=== PATIENT | male | born 1945 | race Caucasian/White ===

== ENCOUNTER 2019-03-05 16:37 | Inpatient (IN) | payer MEDICARE ==
[~2019-03-05] VITALS: Ht 175.3 cm; Wt 68.9 kg
[2019-03-05] MEDS ORDERED: DILTIAZEM HCL 5 MG/ML 5 ML VIAL IV STA ×2 (16:50→16:54)
[2019-03-05] MEDS ORDERED: SODIUM CHLORIDE 0.9% 1000ML 1,000 ML IV STA (16:54)
[2019-03-05] MEDS ORDERED: SODIUM CHLORIDE 0.9% 1000ML 1,000 ML ONE (16:54)
[2019-03-05] MEDS ORDERED: DILTIAZEM HCL VIAL 5 ML ONE ×2 (16:55→16:56)
[2019-03-05] MEDS ORDERED: NITROGLYCERIN 2% OINT 1 GM PKT TOP ONE ×2 (17:00)
[2019-03-05] MEDS ORDERED: SODIUM CHLORIDE 0.9% 1000ML 1,000 ML IV ONE (17:00)
[2019-03-05 17:27] LABS: BASOPHILS % 0.4 % (0.0-1.0); EOSINOPHILS # (AUTO) 0.2 (0.0-0.4); EOSINOPHILS % 2.1 % (0.0-6.0); HEMATOCRIT 45.5 % (38.2-49.6); HEMOGLOBIN 15.2 g/dL (14.0-18.0); LYMPHOCYTES # (AUTO) 1.7 (1.0-3.2); LYMPHOCYTES % 15.1 % (18.0-39.1); MEAN CORPUSCULAR HEMOGLOBIN 29.6 pg (28-32); MEAN CORPUSCULAR HGB CONC 33.4 g/dL (31-35); MEAN CORPUSCULAR VOLUME 88.5 fL (81-99); MONOCYTES # (AUTO) 0.9 (0.2-0.8); MONOCYTES % 7.8 % (4.4-11.3); NEUTROPHILS # (AUTO) 8.3 (2.1-6.9); NEUTROPHILS % 74.2 % (38.7-80.0); PLATELET COUNT 226 x10e3/uL (140-360); RED BLOOD COUNT 5.14 x10e6/uL (4.3-5.7); RED CELL DISTRIBUTION WIDTH 14.1 % (11.7-14.4)
[2019-03-05 17:40] LABS: INR 0.92; PARTIAL THROMBOPLASTIN TIME 32.7 seconds (23.8-35.5); PROTHROMBIN TIME 12.9 seconds (11.9-14.5)
[2019-03-05 17:48] LABS: ALANINE AMINOTRANSFERASE 34 IU/L (0-55); ALBUMIN 4.1 g/dL (3.5-5.0); ALBUMIN/GLOBULIN RATIO 1.6 (0.8-2.0); ALKALINE PHOSPHATASE 94 IU/L (40-150); ANION GAP 15.2 mmol/L (8-16); BLOOD UREA NITROGEN 18 mg/dL (7-26); BUN/CREATININE RATIO 16 (6-25); CALCIUM 9.9 mg/dL (8.4-10.2); CARBON DIOXIDE 25 mmol/L (22-29); CHLORIDE 103 mmol/L (98-107); CREATINE KINASE 69 IU/L (30-200); CREATININE, SERUM 1.14 mg/dL (0.72-1.25); EST GLOMERULAR FILTRATION RATE > 60 ML/MIN (60-); GLUCOSE 119 mg/dL (74-118); POTASSIUM 4.2 mmol/L (3.5-5.1); SODIUM 139 mmol/L (136-145)
[2019-03-05 17:48] LABS: ABG HCO3 26 mmol/L (23-28); ABG PCO2 40 mmHg (41-51); ABG PH 7.41 (7.31-7.41); ABG PO2 119 mmHg (80-105)
--- NOTE | 2019-03-05 17:55 | Diagnostic Imaging Report ---
Examination: Single AP view of the chest. COMPARISON: None. INDICATION: Shortness of breath DISCUSSION: Lines/tubes: None. Lungs: Pulmonary venous congestion and mild edema. Pleura: Possible small effusions. Heart and mediastinum: The heart and the mediastinum are unremarkable. Bones and soft tissues: No acute bony abnormalities. IMPRESSION: Pulmonary venous congestion and mild edema with possible small effusions. Signed by: Dr. Kartik Caceres M.D. on 03/05/2019 5:51 PM
[2019-03-05 18:04] LABS: B-TYPE NATRIURETIC PEPTIDE2 621.3 pg/mL (0-100)
[2019-03-05 18:08] LABS: THYROID STIMULATING HORMONE 1.573 uIU/mL (0.350-4.940)
[2019-03-05] MEDS ORDERED: DILTIAZEM HCL 60 MG TAB PO NR (18:45)
[2019-03-05] MEDS ORDERED: FUROSEMIDE INJ 10 MG/ML 4 ML VIAL IV NR (18:45)
[2019-03-05 18:48] LABS: BILIRUBIN,URINE NEGATIVE (NEGATIVE); CLARITY,URINE CLEAR (CLEAR); COLOR,URINE YELLOW (YELLOW); KETONES,URINE NEGATIVE (NEGATIVE); LEUKOCYTE ESTERASE ,URINE NEGATIVE (NEGATIVE); NITRITE,URINE NEGATIVE (NEGATIVE); PROTEIN,URINE DIPSTICK 1+ (NEGATIVE); URINE UROBILINOGEN 0.2 mg/dL (0.2 - 1)
[2019-03-05] MEDS ORDERED: DILTIAZEM HCL 5 MG/ML 5 ML VIAL IV NR (18:56)
[2019-03-05 18:59] LABS: BACTERIA,URINE MODERATE /HPF; EPITHELIAL CELLS,URINE FEW /LPF; MUCUS,URINE MODERATE (RARE)
[2019-03-05] MEDS ORDERED: ENOXAPARIN SODIUM INJ 100 MG/ML SYR SC SCH (19:00)
[2019-03-05] MEDS ORDERED: ONDANSETRON HCL INJ 2MG/ML 2ML 2 MG/ML VIAL IV PRN (19:00)
--- NOTE | 2019-03-05 19:07 | Diagnostic Imaging Report ---
EXAMINATION: CT scan of the chest with contrast. TECHNIQUE: Helical CT images of the chest were performed from the lung apices to the level of the adrenal glands after the intravenous administration of 100 cc of Omnipaque 300. Coronal and sagittal reformatted images were obtained.Dose modulation, iterative reconstruction, and/or weight based adjustment of the mA/kV was utilized to reduce the radiation dose to as low as reasonably achievable. COMPARISON: None. CLINICAL HISTORY:Shortness of breath DISCUSSION: LINES/TUBES: None. LUNGS AND AIRWAYS: No pulmonary blood. Centrilobular emphysema. Interlobular septal thickening most prominent within the lower lungs bilaterally. PLEURA: No pneumothorax or pleural effusions. HEART AND MEDIASTINUM: The thyroid gland is normal. Heart size is normal. Main pulmonary artery measures 2.6 cm. LYMPH NODES: There is no mediastinal, hilar or axillary lymphadenopathy. ABDOMEN: Limited contrast-enhanced views of the upper abdomen show no abnormality within the visualized liver, spleen, pancreas, or kidneys. The adrenal glands are normal. BONES AND SOFT TISSUES: No acute bony abnormalities. IMPRESSION: No pulmonary embolism. Pulmonary emphysema. Interstitial lung disease versus edema in the lower lungs. Signed by: Dr. Kartik Caceres M.D. on 03/05/2019 7:03 PM
[2019-03-05] MEDS ORDERED: MORPHINE SULFATE INJ 4 MG/ML INJ 1ML IV PRN (19:15)
--- OUTSIDE RECORDS SUMMARY | 2019-03-05 19:36 | XMS REPORT ---
[facility] Address Unknown Phone Unavailable Care Team Providers Care [employer] Supervisor Name Role Phone Froilan ROQUE Unavailable Unavailable Payers Payer Name Policy Type Policy Number Effective Date Expiration Date Problems This patient has no known problems. Allergies, Adverse Reactions, Alerts Allergy Name Allergy Type Status Severity Reaction(s) Onset Date Inactive Date Treating Clinician Comments No Known Allergies DA Active U 2019-01-24 00:00:00 No Known Allergies DA Active U 2012-06-09 00:00:00 Medications This patient has no known medications. Results Test Description Test Time Test Comments Text Results Atomic Results Result Comments CT CHEST W 2019-03-05 18:59:00 [facility] [address] [place], [place] [address] Patient Name: SHANEL MENDOZA MR #: [id number] : 1945 Age/Sex: 74/M Req #: [id number] Adm Physician: Ordered by: SANDY ROQUE MD Report #: [id number] Location: ER Room/Bed: Procedure: [id number] CT/CT CHEST W Exam Date: 03/05/19 Exam Time: 1830 REPORT STATUS: Signed EXAMINATION: CT scan of the chest with contrast. TECHNIQUE: Helical CT images of the chest were performed from the lung apices to the level of the adrenal glands after the intravenous administration of 100 cc of Omnipaque 300. Coronal and sagittal reformatted images were obtained.Dose modulation, iterative reconstruction, and/or weight based adjustment of the mA/kV was utilized to reduce the radiation dose to as low as reasonably achievable. COMPARISON: None. CLINICAL HISTORY:Shortness of breath DISCUSSION: LINES/TUBES: None. LUNGS AND AIRWAYS: No pulmonary blood. Centrilobular emphysema. Interlobular septal thickening most prominent within the lower lungs bilaterally. PLEURA: No pneumothorax or pleural effusions. HEART AND MEDIASTINUM: The thyroid gland is normal. Heart size is normal. Main pulmonary artery measures 2.6 cm. LYMPH NODES: There is no mediastinal, hilar or axillary lymphadenopathy. ABDOMEN: Limited contrast-enhanced views of the upper abdomen show no abnormality within the visualized liver, spleen, pancreas, or kidneys. The adrenal glands are normal. BONES AND SOFT TISSUES: No acute bony abnormalities. IMPRESSION: No pulmonary embolism. Pulmonary emphysema. Interstitial lung disease versus edema in the lower lungs. Signed by: Dr. Chris Montoya M.D. 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 COMPARISON: Non e. INDICATION: Shortness of breath DISCUSSION: Lines/tubes: None. Lungs: Pulmonary venous congestion and mild edema. Pleura: Possible small effusions. Heart and mediastinum: The heart and the mediastinum are unremarkable. Bones and soft tissues: No acute bony abnormalities. IMPRESSION: Pulmonary venous congestion and mild edema with possible small effusions. Signed by: Dr. Chris Montoya M.D. on 03/05/2019 5:51 PM Dictated By: CHRIS MONTOYA MD 50 Transcribed By: ROBINSON on 03/05/191750 COPY TO: JOSUE GARZA NP BASIC METABOLIC PANEL 2019-01-26 06:30:00 SODIUM (test code=NA) 140 mmol/L 136-145 POTASSIUM (test code=K) 3.9 mmol/L 3.5-5.1 CHLORIDE (test code=CL) 104.0 mmol/L 98-107 CARBON DIOXIDE (test code=CO2) 29.0 mmol/L 21-32 ANION GAP (test code=GAP) 10.9 10-20 GLUCOSE (test code=GLU) 109 mg/dL 74-106 BLOOD UREA NITROGEN (test code=BUN) 29 mg/dL 7-18 RESULT VERIFIED BY REPEAT ANALYSIS GLOMERULAR FILTRATION RATE (test code=GFR) 60 mL/min >=60 Estimated GFR by using Modified MDRD formula.Chronic kidney disease is defined as either kidney damageor GFR <60 mL/min/1.73 m2 for >3 months. CREATININE (test code=CREAT) 1.20 mg/dL 0.7-1.3 BUN/CREATININE RATIO (test code=BUN/CREA) 24.2 10-20 CALCIUM (test code=CA) 8.9 mg/dL 8.5-10.1 BASIC METABOLIC [id number] 06:19:00* Test Item Value Reference Range Comments SODIUM (test code=NA) 140 mmol/L 136-145 POTASSIUM (test code=K) 3.9 mmol/L 3.5-5.1 CHLORIDE (test code=CL) 104.0 mmol/L 98-107 CARBON DIOXIDE (test code=CO2) mmol/L 21-32 ANION GAP (test code=GAP) 10-20 GLUCOSE (test code=GLU) mg/dL 74-106 BLOOD UREA NITROGEN (test code=BUN) mg/dL 7-18 GLOMERULAR FILTRATION RATE (test code=GFR) mL/min >=60 CREATININE (test code=CREAT) mg/dL 0.7-1.3 BUN/CREATININE RATIO (test code=BUN/CREA) 10-20 CALCIUM (test code=CA) mg/dL 8.5-10.1 CBC W/AUTO [id number] 05:53:00* Test Item Value Reference Range Comments WHITE BLOOD CELL (test code=WBC) 17.8 K/mm3 4.5-12.5 RED BLOOD CELL (test code=RBC) 4.31 mill/mm3 4.0-5.8 HEMOGLOBIN (test code=HGB) 12.4 gram/dL 13.0-17.5 HEMATOCRIT (test code=HCT) 39.5 % 42.0-52.0 MEAN CELL VOLUME (test code=MCV) 91.6 fL 80-98 MEAN CELL HGB (test code=MCH) 28.8 picogram 27.0-33.0 MEAN CELL HGB CONCETRATION (test code=MCHC) 31.4 gram/dL 33.0-36.0 RED CELL DISTRIBUTION WIDTH (test code=RDW) 14.1 % 11.6-16.2 RED CELL DISTRIBUTION WIDTH SD (test code=RDW-SD) 47.5 fL 37.0-51.0 PLATELET COUNT (test code=PLT) 218 K/mm3 150-450 MEAN PLATELET VOLUME (test code=MPV) 11.2 fL 6.7-11.0 NEUTROPHIL % (test code=NT%) 87.1 % 39.0-69.0 IMMATURE GRANULOCYTE % (test code=IG%) 0.6 % 0.0-5.0 LYMPHOCYTE % (test code=LY%) 5.9 % 25.0-55.0 MONOCYTE % (test code=MO%) 6.2 % 0.0-10.0 EOSINOPHIL % (test code=EO%) 0.1 % 0.0-5.0 BASOPHIL % (test code=BA%) 0.1 % 0.0-1.0 NUCLEATED RBC % (test code=NRBC%) 0.0 % 0-0 NEUTROPHIL # (test code=NT#) 15.48 K/mm3 1.8-7.7 IMMATURE GRANULOCYTE # (test code=IG#) 0.11 x10 3/uL 0-0.03 LYMPHOCYTE # (test code=LY#) 1.04 K/mm3 1.0-5.0 MONOCYTE # (test code=MO#) 1.10 K/mm3 0-0.8 EOSINOPHIL # (test code=EO#) 0.01 K/mm3 0.0-0.5 BASOPHIL # (test code=BA#) 0.01 K/mm3 0.0-0.2 NUCLEATED RBC # (test code=NRBC#) 0.00 K/mm3 0.0-0.1 CBC W/AUTO [id number] 07:55:00* Test Item Value Reference Range Comments WHITE BLOOD CELL (test code=WBC) 18.4 K/mm3 4.5-12.5 RED BLOOD CELL (test code=RBC) 4.20 mill/mm3 4.0-5.8 HEMOGLOBIN (test code=HGB) 12.4 gram/dL 13.0-17.5 RESULT VERIFIED BY REPEAT ANALYSIS HEMATOCRIT (test code=HCT) 38.1 % 42.0-52.0 MEAN CELL VOLUME (test code=MCV) 90.7 fL 80-98 MEAN CELL HGB (test code=MCH) 29.5 picogram 27.0-33.0 MEAN CELL HGB CONCETRATION (test code=MCHC) 32.5 gram/dL 33.0-36.0 RED CELL DISTRIBUTION WIDTH (test code=RDW) 13.9 % 11.6-16.2 RED CELL DISTRIBUTION WIDTH SD (test code=RDW-SD) 46.5 fL 37.0-51.0 PLATELET COUNT (test code=PLT) 196 K/mm3 150-450 RESULT VERIFIED BY REPEAT ANALYSIS MEAN PLATELET VOLUME (test code=MPV) 10.9 fL 6.7-11.0 NEUTROPHIL % (test code=NT%) 91.7 % 39.0-69.0 IMMATURE GRANULOCYTE % (test code=IG%) 0.7 % 0.0-5.0 LYMPHOCYTE % (test code=LY%) 3.9 % 25.0-55.0 MONOCYTE % (test code=MO%) 3.6 % 0.0-10.0 EOSINOPHIL % (test code=EO%) 0.0 % 0.0-5.0 BASOPHIL % (test code=BA%) 0.1 % 0.0-1.0 NUCLEATED RBC % (test code=NRBC%) 0.0 % 0-0 NEUTROPHIL # (test code=NT#) 16.91 K/mm3 1.8-7.7 IMMATURE GRANULOCYTE # (test code=IG#) 0.12 x10 3/uL 0-0.03 LYMPHOCYTE # (test code=LY#) 0.72 K/mm3 1.0-5.0 MONOCYTE # (test code=MO#) 0.66 K/mm3 0-0.8 EOSINOPHIL # (test code=EO#) 0.00 K/mm3 0.0-0.5 BASOPHIL # (test code=BA#) 0.02 K/mm3 0.0-0.2 NUCLEATED RBC # (test code=NRBC#) 0.00 K/mm3 0.0-0.1 MANUAL DIFF REQUIRED (test code=MDIFF) NO BASIC METABOLIC [id number] 07:41:00* Test Item Value Reference Range Comments SODIUM (test code=NA) 139 mmol/L 136-145 POTASSIUM (test code=K) 4.0 mmol/L 3.5-5.1 CHLORIDE (test code=CL) 106.0 mmol/L 98-107 CARBON DIOXIDE (test code=CO2) 25.0 mmol/L 21-32 ANION GAP (test code=GAP) 12.0 10-20 GLUCOSE (test code=GLU) 170 mg/dL 74-106 BLOOD UREA NITROGEN (test code=BUN) 21 mg/dL 7-18 GLOMERULAR FILTRATION RATE (test code=GFR) > 60 mL/min >=60 Estimated GFR by using Modified MDRD formula.Chronic kidney disease is defined as either kidney damageor GFR <60 mL/min/1.73 m2 for >3 months. CREATININE (test code=CREAT) 1.10 mg/dL 0.7-1.3 BUN/CREATININE RATIO (test code=BUN/CREA) 19.1 10-20 CALCIUM (test code=CA) 9.0 mg/dL 8.5-10.1 BASIC METABOLIC [id number] 07:30:00* Test Item Value Reference Range Comments SODIUM (test code=NA) 139 mmol/L 136-145 POTASSIUM (test code=K) 4.0 mmol/L 3.5-5.1 CHLORIDE (test code=CL) 106.0 mmol/L 98-107 CARBON DIOXIDE (test code=CO2) mmol/L 21-32 ANION GAP (test code=GAP) 10-20 GLUCOSE (test code=GLU) mg/dL 74-106 BLOOD UREA NITROGEN (test code=BUN) mg/dL 7-18 GLOMERULAR FILTRATION RATE (test code=GFR) mL/min >=60 CREATININE (test code=CREAT) mg/dL 0.7-1.3 BUN/CREATININE RATIO (test code=BUN/CREA) 10-20 CALCIUM (test code=CA) mg/dL 8.5-10.1 PROCALCITONIN (PCT)2019-01-24 18:49:00* Test Item Value Reference Range Comments PROCALCITONIN (PCT) (test code=PROCAL) 0.07 ng/ml Concentration Interpretation (ng/mL) <0.51 Sepsis is not likely. Local bacterial infection is possible. (LOW RISK for progression to Sepsis) 0.51 - 2.00 Sepsis is possible, but other conditions are known to elevate PCT as well. (MODERATE RISK for progression to Sepsis) > 2.00 Sepsis is likely, unless other causes are known. (HIGH RISK for progression to Severe Sepsis or Septic Shock) 10.00 High likelihood of Severe Sepsis or Septic or higher Shock. *Increased PCT levels may not always be related to systemic bacterial infection.*Low PCT levels do not automatically exclude the presence of bacterial infection.*All results should be interpreted taking into account the patients history. ARTERIAL BLOOD [id number] 17:16:00* Test Item Value Reference Range Comments ARTERIAL BLOOD GAS PH (test code=PHA) 7.43 7.35-7.45 ARTERIAL BLOOD GAS PCO2 (test code=PCO2A) 35.8 mm Hg 35-45 ARTERIAL BLOOD GAS PO2 (test code=PO2A) 84.0 mmHg 80-100 BICARBONATE TOTAL HCO3 (test code=HCO3) 23.3 mmol/L 23.0-27.0 BASE EXCESS (test code=MO) -0.5 mmol/L -3.0-5.0 ABG O2 SATURATION (test code=SATA) 96.2 % 90.0-98.0 ABG TYPE (test code=TYPEA) Arterial FIO2 (test code=FIO2A) 32.0 ABG SITE (test code=SITEA) Lt BRACHIAL ARTERY MODIFIED ALLENS (test code=MODALL) Yes CHECK PERFORMED SODIUM (test code=NA/ABG) 138.2 mEq/L 135-148 POTASSIUM (test code=K/ABG) 4.2 mEq/L 3.5-4.5 CHLORIDE (test code=CL/ABG) 102 mEq/L 98-106 GLUCOSE (test code=GLU/ABG) 190 mg/dL 74-99 HEMATOCRIT (test code=HCT/ABG) 41 % 42-52 IONIZED CALCIUM (test code=CAIABG) 1.20 mmol/L 1.1-1.37 TOTAL HGB (test code=THB) 13.8 gram/dL 13.0-17.5 HGB O2 SAT (test code=HBOSAT) 95.5 % 94.00-98.00 CARBOXYHEMOGLOBIN (test code=HOHGBT) 0.4 %totalHg 0.5-1.5 Results called to and read back by dr carrillo 17:16 - 01/24/2019; by laura METHEMOGLOBIN (test code=METHGB) 0.3 % 0.0-1.50 O2 CONTENT (test code=O2CT) 18.6 % vol 18.0-22.0 - CT CHEST W/O [id number] 04:25:00 Name: REJISHANEL MARGOT [facility] : 1945 Age/S: 73 / M [address] Unit #: [id number] Loc: [place] [address] Phys: Romina Garrido MD Acct: [id number] Dis Date: Status: REG ER PHONE #: [phone] Exam Date: 01/24/2019354 FAX #: [phone] Reason: SOB, POSSIBLE MASS EXAMS: CPT CODE: [id number] CT CHEST W/O CONTRAST 06279 AFTER HOURS SERVICE ON: 01/24/2019 4:[address] Scan of the Chest Without Contrast Location Code M12 History: SOB, POSSIBLE MASS Technique: Scans were performed on a helical scanner pre IV contrast only. Study is limited secondary to lack of IV contrast. One or more of the following dose reduction techniques were used: Automated exposure control, adjustment of the mA and/or kV according to patient size, and/or ut ilization of iterative reconstruction technique. Findings: There are emphysematous changes. There is mild interstitial edema. Atelectatic changes noted in the right lower lobe. There is no pl eural effusion, cavitary lesion or pneumothorax. Several mediastin al lymph nodes are seen with the largest in the precarinal space measuring 1 cm short axis. No hilar or axillary mass seen. There is no cardiomega ly or pericardial effusion. No evidence of aortic aneurysm. Atherosclero sis noted in the aorta and coronary arteries. Impression : Mild interstitial edema. Emphysematous santiago nges. Few small and borderline mediastinal lymph nodes, nonspe cific. Aortic and coronary atherosclerosis. at 0425 Reported and signed by: Mehran Cruz M.D. PAGE 1 Signed Report (CONTINUED) Name: SHANEL MENDOZA [facility] : 1945 Age/S: 73 / M [address] Unit #: [id number] Loc: [place] [address] Phys: Romina Garrido MD Acct: [id number] Dis Date: Status: REG ER PHONE #: [phone] Exam Date: 01/24/2019354 FAX #: [phone] Reason: SOB, POSSIBLE MASS EXAMS: CPT CODE: [id number] CT CHEST W/O CONTRAST 87736 < Continued> CC: Romina Garrido MD Technologist:NIRMAL BLACK, RT; Kira Walter CTDI: DLP: Trnscb Date/Time: 01/24/2019 (424) t.SDR.MA50 Orig Print D/T: S: 01/24/2019 (0428) CTDI: DLP: PAGE 2 Signed Report - CT CHEST W/O [id number] 04:25:00 Name: SHANEL MENDOZA [facility] : 1945 Age/S: 73 / M [address] [facility] Unit #: [id number] Loc: [place] [address] Phys: Romina Garrido MD Acct: [id number] Dis Date: Status: ADM IN PHONE #: [phone] Exam Date: 01/24/2019 0355 FAX #: [phone] Reason: SOB, POSSIBLE MASS EXAMS: CPT CODE: [id number] CT CHEST W/O CONTRAST 47206 AFTER HOURS SERVICE ON: 01/24/2019 4:[address] Scan of the Chest Without Contrast Location Code M12 History: SOB, POSSIBLE MASS Technique: Scans were performed on a helical scanner pre IV contrast only. Study is limited secondary to lack of IV contrast. One or more of the following dose reduction techniques were used: Automated exposure control, adjustment of the mA and/or kV according to patient size, and/or utilization of iterative reconstruction technique. Findings: There are emphysematous changes. There is mild interstitial edema. Atelectatic changes noted in the right lower lobe. There is no pleural effusion, cavitary lesion or pneumothorax. Several mediastinal lymph nodes are seen with the largest in the precarinal space measuring 1 cm short axis. No hilar or axillary mass seen. There is no cardiomegaly or pericardial effusion. No evidence of aortic aneurysm. Atherosclerosis noted in the aorta and coronary arteries. Impression: Mild interstitial edema. Emphysematous changes. Few small and borderline mediastinal lymph nodes, nonspecific. Aortic and coronary atherosclerosis. at 0425 Reported and signed by: Mehran Cruz M.D. PAGE 1 Signed Report (CONTINUED) Name: SHANEL MENDOZA [facility] : 1945 Age/S: 73 / M [address] Unit #: [id number] Loc: [place] [address] Phys: Romina Garrido MD Acct: [id number] Dis Date: Status: ADM IN PHONE #: [phone] Exam Date: 01/24/2019 0359 FAX #: [phone] Reason: SOB, POSSIBLE MASS EXAMS: CPT CODE: [id number] CT CHEST W/O CONTRAST 55285 < Continued> CC: Romina Garrido MD Technologist:NIRMAL BLACK, RT; Kira Walter CTDI: DLP: Trnscb Date/Time: 01/24/2019 (0425) t.SDR.MA50 Orig Print D/T: S: 01/24/2019 (0428) CTDI: DLP: PAGE 2 Signed Report B-TYPE NATRIURETIC [id number] 03:31:00* Test Item Value Reference Range Comments B-TYPE NATRIURETIC PEPTIDE (test code=BNP) 449.60 pgram/mL 0-100 BASIC METABOLIC [id number] 03:25:00* Test Item Value Reference Range Comments SODIUM (test code=NA) 144 mmol/L 136-145 POTASSIUM (test code=K) 3.8 mmol/L 3.5-5.1 CHLORIDE (test code=CL) 106.0 mmol/L 98-107 CARBON DIOXIDE (test code=CO2) 29.0 mmol/L 21-32 ANION GAP (test code=GAP) 12.8 10-20 GLUCOSE (test code=GLU) 123 mg/dL 74-106 BLOOD UREA NITROGEN (test code=BUN) 21 mg/dL 7-18 GLOMERULAR FILTRATION RATE (test code=GFR) 54 mL/min >=60 Estimated GFR by using Modified MDRD formula.Chronic kidney disease is defined as either kidney damageor GFR <60 mL/min/1.73 m2 for >3 months. CREATININE (test code=CREAT) 1.30 mg/dL 0.7-1.3 BUN/CREATININE RATIO (test code=BUN/CREA) 16.2 10-20 CALCIUM (test code=CA) 8.9 mg/dL 8.5-10.1 HEPATIC FUNCTION [id number] 03:25:00* Test Item Value Reference Range Comments TOTAL PROTEIN (test code=PROT) 7.6 gram/dL 6.4-8.2 ALBUMIN (test code=ALB) 4.0 g/dL 3.4-5.0 GLOBULIN (test code=GLOB) 3.6 gram/dL 2.7-4.2 ALBUMIN/GLOBULIN RATIO (test code=A/G) 1.1 0.75-1.50 BILIRUBIN TOTAL (test code=BILT) 0.40 mg/dL 0.0-1.0 BILIRUBIN DIRECT (test code=BILD) 0.14 mg/dL 0.0-0.20 SGOT/AST (test code=AST) 24 IUnit/L 15-37 SGPT/ALT (test code=ALT) 28 IUnit/L 12-78 ALKALINE PHOSPHATASE TOTAL (test code=ALKP) 106 IUnit/L 45-117 Note change in reference range due to change in reagent. [id number] 03:25:00* Test Item Value Reference Range Comments LIPASE (test code=LIP) 507 U/L 73.0-393.0 [id number] 03:25:00* Test Item Value Reference Range Comments MAGNESIUM (test code=MAG) 2.1 mg/dL 1.8-2.4 [id number] 03:25:00* Test Item Value Reference Range Comments TROPONIN-I (test code=TROPI) 0.038 ng/mL 0-0.045 PROTHROMBIN [id number] 03:10:00* Test Item Value Reference Range Comments PROTHROMBIN TIME PATIENT (test code=PTP) 12.4 seconds 9.0-14.0 INTERNATIONAL NORMAL RATIO (test code=INR) 1.1 0.8-1.2 The therapeutic range for oral anticoagulant therapy formost indications is an international normalized ratio (INR)of between 2.0 and 3.0. The recommended therapeutic INRrange for various clinical situations is listed below: Clinical Situation INR range Pulmonary e mbolism treatment (2.0-3.0)Venous thrombosis treatmentVenous thrombosis prophylaxis (high risk surgery)Prevention of systemic embolism from: Acute myocardial infarction Valvular heart disease Atrial fibrillation Mechanical prosthetic heart valves (2.5-3.5) IS PATIENT ON ANTICOAGULANTS? NTHROMBOPLASTIN TIME [id number] 03:10:00* Test Item Value Reference Range Comments THROMBOPLASTIN TIME PARTIAL (test code=PTT) 33.4 seconds 25.0-36.5 IS PATIENT ON ANTICOAGULANTS? NBASIC METABOLIC [id number] 03:09:00* Test Item Value Reference Range Comments SODIUM (test code=NA) 144 mmol/L 136-145 POTASSIUM (test code=K) 3.8 mmol/L 3.5-5.1 CHLORIDE (test code=CL) 106.0 mmol/L 98-107 CARBON DIOXIDE (test code=CO2) mmol/L 21-32 ANION GAP (test code=GAP) 10-20 GLUCOSE (test code=GLU) mg/dL 74-106 BLOOD UREA NITROGEN (test code=BUN) mg/dL 7-18 GLOMERULAR FILTRATION RATE (test code=GFR) mL/min >=60 CREATININE (test code=CREAT) mg/dL 0.7-1.3 BUN/CREATININE RATIO (test code=BUN/CREA) 10-20 CALCIUM (test code=CA) mg/dL 8.5-10.1 HEPATIC FUNCTION [id number] 03:09:00* Test Item Value Reference Range Comments TOTAL PROTEIN (test code=PROT) gram/dL 6.4-8.2 ALBUMIN (test code=ALB) g/dL 3.4-5.0 GLOBULIN (test code=GLOB) gram/dL 2.7-4.2 ALBUMIN/GLOBULIN RATIO (test code=A/G) 0.75-1.50 BILIRUBIN TOTAL (test code=BILT) mg/dL 0.0-1.0 BILIRUBIN DIRECT (test code=BILD) mg/dL 0.0-0.20 SGOT/AST (test code=AST) IUnit/L 15-37 SGPT/ALT (test code=ALT) IUnit/L 12-78 ALKALINE PHOSPHATASE TOTAL (test code=ALKP) IUnit/L 45-117 [id number] 03:09:00* Test Item Value Reference Range Comments LIPASE (test code=LIP) U/L 73.0-393.0 [id number] 03:09:00* Test Item Value Reference Range Comments MAGNESIUM (test code=MAG) mg/dL 1.8-2.4 [id number] 03:09:00* Test Item Value Reference Range Comments TROPONIN-I (test code=TROPI) ng/mL 0-0.045 - XR CHEST 1 [id number] 02:58:00 FAX: Romina Garrido MD [phone] [place]: B St: REG Name: SHANEL MELCHOR [facility] : [birth year] Age/S: 73/M [address] [facility] Unit #: [id number] Loc: [place] [address] Phys: Romina Garrido MD Acct: [id number] Dis Date: Status: REG ER PHONE #: [phone] Exam Date: 01/24/2019 0250 FAX #: [phone] Reason: Shortness of Breath EXAMS: CPT CODE: [id number] XR CHEST 1 V 09652 - XR CHEST 1 V, 01/24/2019 2:37 AM Reason For Examination: Shortness of Breath Comparison: None available Location: R16 Findings LUNGS: Increased bilateral interstitial opacities and reticulation are seen, nonspecific PLEURA: No pleural effusions CARDIOMEDIASTINAL [place]IL[place]ETTE Unremarkable IMPRESSION: Increased bilateral interstitial opacities and retic ulation are seen, nonspecific, fibrotic change, pneumonitis or atypical edema within the differential at 0258 Reported and signed by: Shivani Lozano CC: Romina Garrido MD Tech nologist: Kira Dickinson Trnscrd Date/Ti me/By: 01/24/2019 (0258) : By: [email or web address] Orig Print D/T: S: 01/24/2019 (0302) PAGE 1 Signed Report - XR CHEST 1 [id number] 02:58:00 FAX: Romina Garrido MD [phone] [place]: St: ADM Name: SAHNEL MELCHOR [facility] : [birth year] Age/S: 73/M [address] [facility] Unit #: [id number] Loc: V[address] [place] [address] Phys: Romina Garrido MD Acct: [id number] Dis Date: Status: ADM IN PHONE #: [phone] Exam Date: 01/24/2019249 FAX #: [phone] Reason: Shortness of Breath EXAMS: CPT CODE: [id number] XR CHEST 1 V 38632 - XR CHEST 1 V, 01/24/2019 2:37 AM Reason For Examination: Shortness of Breath Comparison: None available Location: R16 Findings LUNGS: Increased bilateral interstitial opacities and reticulation are seen, nonspecific PLEURA: No pleural effusions CARDIOMEDIASTINAL [place]ETTE Unremarkable IMPRESSION: Increased bilateral interstitial opacities and retic ulation are seen, nonspecific, fibrotic change, pneumonitis or atypical edema within the differential at 0258 Reported and signed by: Shivani Lozano CC: Romina Garrido MD Tech nologist: Kira Liu /Ti me/By: 01/24/2019 (0258) : By: [email or web address] Orig Print D/T: S: 01/24/2019 (0303) PAGE 1 Signed Report - XR CHEST 1 [id number] 02:58:00 FAX: Romina Garrido MD [phone] [place]: St: ADM Name: SHANEL MELCHOR [facility] : [birth year] Age/S: 73/M [address] [facility] Unit #: [id number] Loc: V.[address] [place] [address] Phys: Romina Garrido MD Acct: [id number] Dis Date: Status: ADM IN PHONE #: [phone] Exam Date: 01/24/2019249 FAX #: [phone] Reason: Shortness of Breath EXAMS: CPT CODE: [id number] XR CHEST 1 V 70530 - XR CHEST 1 V, 01/24/2019 2:37 AM Reason For Examination: Shortness of Breath Comparison: None available Location: R16 Findings LUNGS: Increased bilateral interstitial opacities and reticulation are seen, nonspecific PLEURA: No pleural effusions CARDIOMEDIASTINAL SILHOUETTE Unremarkable IMPRESSION: Increased bilateral interstitial opacities and retic ulation are seen, nonspecific, fibrotic change, pneumonitis or atypical edema within the differential at 0258 Reported and signed by: Shivani Lozano CC: Romina Garrido MD Tech nologist: Kira Liu Date/Ti me/By: 01/24/2019 (0258) : By: [email or web address] Orig Print D/T: S: 01/24/2019 (0302) PAGE 1 Signed Report CBC W/O [id number] 02:57:00* Test Item Value Reference Range Comments WHITE BLOOD CELL (test code=WBC) 11.9 K/mm3 4.5-12.5 RED BLOOD CELL (test code=RBC) 5.19 mill/mm3 4.0-5.8 HEMOGLOBIN (test code=HGB) 14.6 gram/dL 13.0-17.5 HEMATOCRIT (test code=HCT) 48.6 % 42.0-52.0 MEAN CELL VOLUME (test code=MCV) 93.6 fL 80-98 MEAN CELL HGB (test code=MCH) 28.1 picogram 27.0-33.0 MEAN CELL HGB CONCETRATION (test code=MCHC) 30.0 gram/dL 33.0-36.0 RED CELL DISTRIBUTION WIDTH (test code=RDW) 13.8 % 11.6-16.2 PLATELET COUNT (test code=PLT) 283 K/mm3 150-450 MEAN PLATELET VOLUME (test code=MPV) 10.6 fL 6.7-11.0 CBC W/O [id number] 02:56:00* Test Item Value Reference Range Comments WHITE BLOOD CELL (test code=WBC) K/mm3 4.5-12.5 RED BLOOD CELL (test code=RBC) mill/mm3 4.0-5.8 HEMOGLOBIN (test code=HGB) 14.6 gram/dL 13.0-17.5 HEMATOCRIT (test code=HCT) 48.6 % 42.0-52.0 MEAN CELL VOLUME (test code=MCV) fL 80-98 MEAN CELL HGB (test code=MCH) picogram 27.0-33.0 MEAN CELL HGB CONCETRATION (test code=MCHC) gram/dL 33.0-36.0 RED CELL DISTRIBUTION WIDTH (test code=RDW) % 11.6-16.2 PLATELET COUNT (test code=PLT) K/mm3 150-450 MEAN PLATELET VOLUME (test code=MPV) fL 6.7-11.0
[2019-03-05] MEDS ORDERED: HYDRALAZINE HCL 20 MG/ML VIAL IV PRN (20:30)
[2019-03-05] MEDS ORDERED: WIXELA INH (20:40)
[2019-03-05] MEDS ORDERED: IPRATROPIU0.2 MG/1 M IN (20:40)
[2019-03-05] MEDS ORDERED: FAMOTIDINE20 MG PO (20:40)
[2019-03-05] MEDS ORDERED: FUROSEMIDE20 MG PO (20:40)
[2019-03-05] MEDS ORDERED: LISINOPRIL-HCT1 EACH PO (20:40)
[2019-03-05] MEDS ORDERED: CARVEDILOL3.125 MG PO (20:40)
[2019-03-05] MEDS ORDERED: ALBUTEROL2.5 MG/3 M INH (20:40)
[2019-03-05] MEDS: IPRATROPIUM BROMIDE 0.02% 2.5 ML NEB NEB SCH ×2 (21:00→23:00)
[2019-03-05] MEDS: LEVALBUTEROL HCL SOLN NEBU 0.63 MG/3 ML NEB INH SCH (21:00)
[2019-03-05 21:26] VITALS: BP_SYST 166; BP_SYST 169; BP_DIAS 106
[2019-03-05 21:35] VITALS: BP 169/106
[2019-03-05] MEDS: DILTIAZEM HCL 60 MG TAB PO NR (22:25)
[2019-03-05] MEDS ORDERED: IOPAMIDOL 370 MG/ML 200 ML INFUS..BTL INJ ONE (22:37)
[2019-03-05] MEDS ORDERED: SODIUM CHLORIDE 0.9% 50ML 50 ML ONE (22:37)
[2019-03-05] MEDS ORDERED: METOPROLOL TARTRATE INJ 1 MG/ML VIAL IV PRN (23:15)
[2019-03-05] MEDS ORDERED: RIVAROXABAN 15 MG TABLET PO SCH (23:15)
[2019-03-06] VITALS (8 sets, daily range): BP systolic 103–184; BP diastolic 62–97
[2019-03-06] MEDS: CARVEDILOL 12.5 MG TAB PO SCH ×3 (00:15→17:55)
[2019-03-06] MEDS: NITROGLYCERIN 2% OINT 1 GM PKT TOP SCH ×3 (00:15→12:00)
[2019-03-06] MEDS: RIVAROXABAN 15 MG TABLET PO SCH ×3 (00:15→17:55)
[2019-03-06 02:21] LABS: CREATINE KINASE MB 3.2 ng/mL (0-5.0)
[2019-03-06] MEDS: IPRATROPIUM BROMIDE 0.02% 2.5 ML NEB NEB SCH ×5 (02:45→23:15)
[2019-03-06] MEDS: LEVALBUTEROL HCL SOLN NEBU 0.63 MG/3 ML NEB INH SCH ×4 (02:45→23:39)
[2019-03-06] MEDS: DILTIAZEM HCL 60 MG TAB PO NR ×3 (06:23→21:24)
[2019-03-06 06:35] LABS: HEMATOCRIT 41.7 % (38.2-49.6); HEMOGLOBIN 13.6 g/dL (14.0-18.0); LYMPHOCYTES # (AUTO) 0.6 (1.0-3.2); LYMPHOCYTES % 6.8 % (18.0-39.1); MEAN CORPUSCULAR HEMOGLOBIN 29.1 pg (28-32); MEAN CORPUSCULAR HGB CONC 32.6 g/dL (31-35); MEAN CORPUSCULAR VOLUME 89.3 fL (81-99); MONOCYTES # (AUTO) 0.1 (0.2-0.8); MONOCYTES % 1.3 % (4.4-11.3); NEUTROPHILS # (AUTO) 7.6 (2.1-6.9); NEUTROPHILS % 90.9 % (38.7-80.0); PLATELET COUNT 171 x10e3/uL (140-360); RED BLOOD COUNT 4.67 x10e6/uL (4.3-5.7); RED CELL DISTRIBUTION WIDTH 14.3 % (11.7-14.4)
[2019-03-06 07:05] LABS: ALBUMIN 3.5 g/dL (3.5-5.0); ALBUMIN/GLOBULIN RATIO 1.3 (0.8-2.0); ANION GAP 11.6 mmol/L (8-16); CALCIUM 9.7 mg/dL (8.4-10.2); CHOL/HDL RATIO 4.2 (3.9-4.7); CREATINE KINASE MB 2.8 ng/mL (0-5.0); CREATININE, SERUM 1.19 mg/dL (0.72-1.25); POTASSIUM 4.6 mmol/L (3.5-5.1)
--- NOTE | 2019-03-06 14:19 | History and Physical ---
HISTORY OF PRESENT ILLNESS: A 74-year-old white male with past medical history positive for COPD, CHF, hypertension, currently smoker, came to the hospital complaining of shortness of breath. REVIEW OF SYSTEMS: PULMONARY: He has shortness of breath and cough. GASTROINTESTINAL: No nausea. No vomiting. No diarrhea. CARDIOVASCULAR: He did have some palpitations. GENITOURINARY: No frequency. No dysuria. ALLERGIES: HE IS NOT ALLERGIC TO ANY MEDICATION. PAST MEDICAL HISTORY: CHF, COPD, and hypertension. SOCIAL HISTORY: He smokes, although he has decreased his smoking amount significantly. No alcohol. IMAGING: Chest CT showed emphysema. Chest x-ray showed congestive heart failure. LABORATORY DATA: On the BMP; sodium 135, potassium 4.6, chloride 100, CO2 28, BUN 24, creatinine 1.19, glucose 168. On CBC; white blood count 8.37, hemoglobin 13.6, hematocrit 41.7, and platelet count 171,000. PT 12.9, INR 0.92, PTT 32.7. AST 27, ALT 29, total bilirubin 0.7, and alkaline phosphatase 89. FINAL IMPRESSION: 1. Hypertensive emergency with chronic renal failure. 2. Chronic obstructive pulmonary disease exacerbation. 3. Acute on chronic systolic congestive heart failure. 4. New onset atrial fibrillation with tachycardia. 5. Chronic renal failure, stage 3. 6. Smoker. PLAN OF TREATMENT: Continue Xopenex and Atrovent q.4 hours. Continue Cardizem 60 mg q.8 hours. Continue morphine 2 mg IV q.3 hours as needed, carvedilol 12.5 mg twice a day, nitroglycerin patch one inch q.6, metoprolol 5 mg IV q.4 hours as needed for tachycardia with a heart rate more than 120 per minute. He was started on Xarelto 15 mg twice a day because of a new onset atrial fibrillation. Continue hydralazine 10 mg IV q.6 hours as needed, Zofran 4 mg IV q.4 hours as needed. We are going to start him on Lasix 40 mg IV daily also. Cardiology consult with Dr. Nayak. MD AUTUMN Myers/JARRED /[id number]
[2019-03-06 15:04] LABS: CREATINE KINASE MB 2.5 ng/mL (0-5.0)
[2019-03-06] MEDS ORDERED: CARVEDILOL12.5 MG PO (16:30)
[2019-03-06] MEDS ORDERED: AMLODIPINE BESY10 MG PO (16:31)
[2019-03-06] MEDS ORDERED: XARELTO20 MG PEG (16:31)
[2019-03-07] VITALS: BP 136/81
--- NOTE | 2019-03-07 00:16 | Consultation ---
DATE OF CONSULTATION: 03/06/2019 Cardiology Consult Note REASON FOR CONSULT: Atrial flutter, hypertensive emergency. HISTORY OF PRESENT ILLNESS: The patient is a 74-year-old man with long history of smoking, COPD, CHF, hypertension, difficult to control, who presented with shortness of breath, was found to have atrial fibrillation with rapid ventricular response, now converted to sinus rhythm. Denies any chest pain on exertion. He has seen Dr. 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 PAST MEDICAL HISTORY: Hypertension, hyperlipidemia, COPD. FAMILY HISTORY: Noncontributory. SOCIAL HISTORY: The patient is a long time smoker. Does not drink or abuse drugs. REVIEW OF SYSTEMS: As per HPI, otherwise negative. OUTPATIENT MEDICATIONS: Please see MAR. ALLERGIES: NO KNOWN DRUG ALLERGIES. PHYSICAL EXAMINATION: VITAL SIGNS: Temperature afebrile, pulse 70, respiratory rate 18, blood pressure 119/69, saturating 98% on room air. GENERAL: Elderly man, in no acute distress. CARDIOVASCULAR: Regular rate and rhythm. No murmurs, rubs, or gallops. LUNGS: Mild wheezing bilaterally. ABDOMEN: Soft, nontender, nondistended. NEURO AND PSYCH: Alert and oriented to person, place, and time. Normal affect. INPATIENT MEDICATIONS: Reviewed. LABORATORY DATA: Reviewed. TELEMETRY DATA: Reviewed. Atrial fibrillation previously, now converted to sinus rhythm. Echocardiogram reviewed. EF is 45% with elevated filling pressures. ASSESSMENT: 1. [id number] systolic heart failure. 2. Atrial fibrillation with rapid ventricular response. 3. Hypertensive urgency. PLAN: Blood pressure is now better controlled on current medical regimen. The patient is refusing to take YOLI inhibitors as he insist that they do not work for him, make his blood pressure go higher, rate controlled on current dose of beta-ramirez. We will start a low-dose diuretic. The patient is converted to sinus rhythm and started on Xarelto. He is okay to be discharged on this medical regimen. Follow up in clinic in 1 to 2 weeks post discharge. Thank you the consult. We will continue to follow. MD RONNI Crandall/JARRED /[id number]
[2019-03-07 04:00] VITALS: BP 133/84
[2019-03-07] MEDS: DILTIAZEM HCL 60 MG TAB PO NR ×2 (05:30→13:55)
[2019-03-07 06:39] LABS: ANION GAP 13.5 mmol/L (8-16); BLOOD UREA NITROGEN 34 mg/dL (7-26); BUN/CREATININE RATIO 31 (6-25); CALCIUM 9.5 mg/dL (8.4-10.2); CARBON DIOXIDE 25 mmol/L (22-29); CHLORIDE 100 mmol/L (98-107); CREATININE, SERUM 1.11 mg/dL (0.72-1.25); EST GLOMERULAR FILTRATION RATE > 60 ML/MIN (60-); GLUCOSE 140 mg/dL (74-118); MAGNESIUM 2.2 MG/DL (1.3-2.1); POTASSIUM 4.5 mmol/L (3.5-5.1); SODIUM 134 mmol/L (136-145)
[2019-03-07] MEDS: LEVALBUTEROL HCL SOLN NEBU 0.63 MG/3 ML NEB INH SCH ×2 (07:00→13:44)
[2019-03-07] MEDS: IPRATROPIUM BROMIDE 0.02% 2.5 ML NEB NEB SCH ×3 (07:00→13:44)
[2019-03-07 08:35] VITALS: BP 140/88
[2019-03-07 08:36] VITALS: BP 140/88
[2019-03-07] MEDS ORDERED: FUROSEMIDE 40 MG TAB PO SCH (09:00)
[2019-03-07] MEDS: RIVAROXABAN 15 MG TABLET PO SCH (09:33)
[2019-03-07] MEDS: CARVEDILOL 12.5 MG TAB PO SCH (09:33)
[2019-03-07] MEDS ORDERED: DOCUSATE SODIUM 100 MG CAP PO NR (10:00)
[2019-03-07 12:06] VITALS: BP 114/72
[2019-03-07] MEDS ORDERED: DOCUSATE SODIUM 100 MG CAP PO SCH (17:00)
--- NOTE | 2019-03-08 02:30 | Discharge Summary ---
HISTORY: The patient is a 74-year-old male, who has a past medical history positive for COPD, CHF, hypertension, came here with shortness of breath. He was found to have extremely high blood pressures and tachycardia also. The patient was given IV Cardizem, IV metoprolol. The heart rate is under control. Blood pressure is much better. He was diagnosed with COPD exacerbation with hypertensive emergency. He was seen by Dr. Valente, cardiology group, who recommended the patient to be discharged home. CT of the chest show COPD changes compatible with emphysema, CHF versus pulmonary fibrosis. The patient is doing better. He is going home today. The oxygen was checked on room air on walking and at rest and it was more than 95% at that time. PHYSICAL EXAMINATION: HEART: Regular rhythm. No murmur or added sound. LUNGS: Clear bilaterally. FINAL IMPRESSION: 1. Hypertensive emergency with chronic renal failure. 2. Chronic obstructive pulmonary disease exacerbation. 3. [id number] systolic congestive heart failure. 4. New onset atrial fibrillation with tachycardia. 5. Chronic renal insufficiency, stage 3. 6. Smoker. The patient is told to quit smoking. DISCHARGE MEDICATIONS: He is going to be discharged on the following medications carvedilol 12.5 mg twice a day, Xarelto 20 mg daily, amlodipine 10 mg daily, furosemide 40 mg daily, and also Spiriva 1 inhalation daily. Apparently, he does have albuterol at home. DISCHARGE INSTRUCTIONS: The patient has renal insufficiency, so potassium will need to be monitored as an outpatient and we are going to give an extra potassium because of that. He is going to follow up with his primary care physician, Dr. Zuniga in approximately a week. Instructions given to the patient. MD AUTUMN Myers/JARRED /[id number]
== END 2019-03-07 15:30 | disposition home or self-care (01) | DRG 291 ==
LOC: ER 16:37 → ERHOLD 19:11 → MED/SURG 21:28
PROVIDERS: ADMIT Internal Medicine; ATTEND Internal Medicine
DX: I13.0 Hypertensive heart and chronic kidney disease with heart failure and stage 1 through stage 4 chronic kidney disease, or unspecified chronic kidney disease (principal); I50.23 Acute on chronic systolic (congestive) heart failure; J44.1 Chronic obstructive pulmonary disease with (acute) exacerbation; I16.1 Hypertensive emergency; I48.92 Unspecified atrial flutter; N18.3 Chronic kidney disease, stage 3 (moderate); F17.210 Nicotine dependence, cigarettes, uncomplicated; I48.91 Unspecified atrial fibrillation; I11.0 Hypertensive heart disease with heart failure; E78.5 Hyperlipidemia, unspecified
CPT/HCPCS: 36415; 36600; 71045; 71260; 80048; 80053; 80061; 81001; 82550; 82553; 82805; 83605; 83735; 83880; 84443; 84484; 85025; 85379; 85610; 85730; 87040; 87086; 93005; 93306; 94640; 96374; 96375; 96376; 99284; J1650; J7030; Q9967